=== PATIENT | male | born 2000 | race Caucasian/White ===

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

== ENCOUNTER 2019-01-05 17:49 | Emergency (ER) | payer OTHER | END 2019-01-05 22:01 | disposition home or self-care (01) | LOC: FTE 17:49 | DX: E04.1 Nontoxic single thyroid nodule (principal); Z87.891 Personal history of nicotine dependence | CPT/HCPCS: 70490; 99284-25 ==

== ENCOUNTER 2019-01-07 12:48 | Emergency (ER) | payer OTHER ==
[2019-01-07 16:00] LABS: T3 UPTAKE 43.3 % (23.5-40.5); T4 (THYROXINE) 7.4 ug/dl (5.5-11.0)
== END 2019-01-07 17:15 | disposition home or self-care (01) ==
LOC: FTE 12:48
DX: E04.1 Nontoxic single thyroid nodule (principal)
CPT/HCPCS: 76536; 84436; 84443; 84479; 99284-25